=== PATIENT | female | born 1960 | race Caucasian/White ===

== ENCOUNTER → 2020-03-24 10:50 | Outpatient (CLI) | payer BC, SELFPAY ==
[2020-03-24 13:47] LABS: Basophils # 0.1 K/mm3 (0-0.2); Basophils % 0.9 % (0.1-2.0); Eosinophils # 0.2 K/mm3 (0.0-0.4); Hemoglobin 15.3 g/dL (12.2-16.2); Lymphocytes # 1.7 K/mm3 (0.7-4.5); Lymphocytes % 14.3 % (10-50); Mean Corpuscular HGB Conc 34.7 g/dL (31.8-35.4); Mean Corpuscular Hemoglobin 33.7 pg (27.0-31.2); Mean Platelet Volume 7.9 fl (7.4-10.4); Monocytes # 0.6 K/mm3 (0.1-1.0); Monocytes % 5.3 % (1.7-9.3); Neutrophils # 9.2 K/mm3 (1.8-7.8); Neutrophils % 77.6 % (37.0-80.0); Platelet Count 447 K/mm3 (142-424); Red Blood Count 4.54 M/mm3 (4.20-5.40); Red Cell Distribution Width 12.5 % (11.5-17.5); White Blood Count 11.9 K/mm3 (4.8-10.8)
[2020-03-24 14:55] LABS: Chloride 98 mmol/L (98-107); Potassium 4.2 mmoL/L (3.5-5.1); Sodium 134 mmol/L (136-145)
[2020-03-24 14:57] LABS: Alanine Aminotransferase 19 U/L (12-78); Aspartate Amino Transferase 37 U/L (14-36); Blood Urea Nitrogen 6 mg/dl (7-17); Estimated Glomerular Filt Rate 163 ml/min (>60); GFR (African American) 198 ML/MIN (>60)
[2020-03-24 14:58] LABS: Albumin Level 4.5 g/dl (3.5-5.0); Albumin/Globulin Ratio 1.3 (1.1-1.8); Alkaline Phosphatase 97 U/L (38-126); Anion Gap 17.2 mEq/L (5-15); Bilirubin,Total 0.8 mg/dl (0.2-1.3); Carbon Dioxide 23 mmol/L (22.0-30.0); Cholesterol 235 mg/dl (140-200); Globulin 3.6 g/dL (1.3-3.2); Glucose 194 mg/dl (74-100); Total Protein,Serum 8.1 g/dl (6.3-8.2); Triglycerides 78 mg/dl (30-150); VLDL Cholesterol 16 mg/dL (0-40)
[2020-03-24 15:07] LABS: Chol/HDL Ratio 1.6 (1-3.5); HDL Cholesterol 145 mg/dl (40-60)
[2020-03-24 15:09] LABS: Direct LDL Cholesterol 82.35 mg/dL (100-129)
[2020-03-24 15:29] LABS: Thyroid Stimulating Hormone 0.05 uIU/mL (0.465-4.68)
== END ==
PROVIDERS: Visit Provider Internal Medicine Adolescent Medicine
DX: I10 Essential (primary) hypertension (principal); E89.0 Postprocedural hypothyroidism
CPT/HCPCS: 36415; 80053; 80061; 84443; 85025

== ENCOUNTER → 2021-05-15 10:16 | Outpatient (CLI) | payer BC, SELFPAY ==
[2021-05-15 14:02] LABS: Chloride 96 mmol/L (98-107); Sodium 133 mmol/L (136-145)
[2021-05-15 14:03] LABS: Potassium 4.2 mmoL/L (3.5-5.1)
[2021-05-15 14:05] LABS: Alanine Aminotransferase 14 U/L (12-78); Albumin Level 4.5 g/dl (3.5-5.0); Albumin/Globulin Ratio 1.4 (1.1-1.8); Alkaline Phosphatase 98 U/L (38-126); Anion Gap 16.2 mEq/L (5-15); Aspartate Amino Transferase 29 U/L (14-36); Bilirubin,Total 0.7 mg/dl (0.2-1.3); Blood Urea Nitrogen 3 mg/dl (7-17); Carbon Dioxide 25 mmol/L (22.0-30.0); Cholesterol 243 mg/dl (140-200); Estimated Glomerular Filt Rate 163 ml/min (>60); GFR (African American) 197 ML/MIN (>60); Globulin 3.3 g/dL (1.3-3.2); Total Protein,Serum 7.8 g/dl (6.3-8.2); Triglycerides 62 mg/dl (30-150); VLDL Cholesterol 12 mg/dL (0-40)
[2021-05-15 14:06] LABS: Calcium 9.7 mg/dl (8.4-10.2); Glucose 88 mg/dl (74-100)
[2021-05-15 14:16] LABS: Chol/HDL Ratio 1.7 (1-3.5); HDL Cholesterol 145 mg/dl (40-60)
[2021-05-15 14:17] LABS: Direct LDL Cholesterol 88.76 mg/dL (100-129)
[2021-05-15 14:36] LABS: Thyroid Stimulating Hormone 0.99 uIU/mL (0.465-4.68)
== END ==
PROVIDERS: Visit Provider Nurse Practitioner Family
DX: Z00.00 Encounter for general adult medical examination without abnormal findings (principal); I10 Essential (primary) hypertension; E89.0 Postprocedural hypothyroidism
CPT/HCPCS: 36415; 80053; 80061; 84443

== ENCOUNTER → 2021-08-25 12:01 | Outpatient (CLI) | payer BC, SELFPAY | PROVIDERS: PCP Internal Medicine Adolescent Medicine; Visit Provider Internal Medicine Pulmonary Disease | DX: Z01.812 Encounter for preprocedural laboratory examination (principal); Z11.52 Encounter for screening for COVID-19 | CPT/HCPCS: C9803; U0003; U0005 ==

== ENCOUNTER 2021-08-28 08:54 | Day surgery (SDC) | payer BC, SELFPAY ==
[2021-08-24 10:58] VITALS: BMI 19.3
[2021-08-28] VITALS (11 sets, daily range): BP systolic 73–163; BP diastolic 43–92; PULSE 111–128; RESP 18–24; TEMP 36.2–37.3; O2SAT 92–96
--- NOTE | 2021-08-28 09:25 | P.PN_ITS ---
[facility] Anesthesia Checklist - Patient Identification Patient Identification: Arm Band - Structural Data Admitted From: Home Planned Operative Procedure/s: Bronchoscopy with biopsy Consent for Planned Operative Procedure(s) Verified: Yes - NPO Status Verified Time NPO: 00:00 - Additional verifications Anesthesia Reactions: No Hx Blood Transfusions: No Blood Transfusion Reaction: No - Airway Assessment C-Spine Mobility Assessed: Yes TMJ Mobility Assessed: Yes - Neurological Assessment Level of Consciousness: Awake Hx Seizures: No Numbness or tingling in extremities: No - Anesthesia Plan Anesthesia Risk discussed: Yes Anesthesia Plan: Verified ASA Class: III Anesthesia Type: General [facility] History I have reviewed the patient's past medical history: Yes Medical History: Reports:: Chronic Obstructive Pulmonary Disease (COPD), Home Oxygen (2L) Denies:: Cancer, Diabetes Mellitus Type 1, Diabetes Mellitus Type 2, Internal Pacemaker, MRSA, Seizures *Have you ever received a pneumonia vaccine?: Yes *Have you received a flu vaccine this season?: Yes Other Medical History: Reports: Hypothyroidism. Denies: Blood Transfusion Reaction Anesthesia experience/problems:: None Other Surgeries: Yes: Thyroidectomy. No: Pacemaker Amputation: No Fractures: No - *Social History Last grade of school completed: High school graduate Smoking Status: Former smoker Alcohol Intake: current Alcohol Intake Frequency:: a few times a week Substance Use Type: denies use *Occupational Status:: retired *Travel in the last 8 weeks: None Family Hx:: Unable to obtain
--- NOTE | 2021-08-28 11:45 | HMH.ANESI ---
[facility] Anesthesia Record Part I Intake, IV Amount: 600 Estimated blood loss (mL): 5 Urine output (mL): 0 Blood Pressure: 157/51 SaO2: 96 Pulse Rate: 128 Respiratory Rate: 20 Temperature: 97.6 F Patient is:: Awake Stable to PACU at:: 11:34
--- NOTE | 2021-08-28 11:50 | XR_ITS ---
FINAL REPORT CLINICAL HISTORY: post op-diff breathing. broch with biopsy COMPARISON: July 01, 2021 FINDINGS: The heart is mildly enlarged. The mediastinum is within normal limits. There is patchy airspace opacity in the right upper lobe and right lower lobe probably due to pneumonia. Findings are more evident than on the prior exam. There is scarring in the medial left upper lobe. Lucencies in the bilateral lung apices are probably due to emphysema. No definite pneumothorax is seen. IMPRESSION: Patchy right upper lobe and right lower lobe airspace opacity probably due to pneumonia. No definite pneumothorax. Reviewed, Interpreted and Dictated by Willem Wan MD Transcribed by Declan Escobar Authenticated by Willem Wan MD on 08/28/2021 01:15:09 PM [facility]
--- NOTE | 2021-08-28 11:55 | HMH.BRONCH ---
- Procedure: Date: 08/28/21 Patient Date of :: 1960 Procedure Performed:: Bronchoscopy with endobronchial ultrasound, fine-needle aspiration, airway examination and Endobronchial biopsy: Indications:: Mediastinal and hilar lymphadenopathy, lung nodules Performing Provider:: Neeru Casas MD Referring Provider:: Dr. Jones Sedation:: General anesthesia Procedure:: Bronchoscopy with endobronchial ultrasound, fine-needle aspiration, airway examination and transbronchial biopsy A clean EBUS bronchoscopy was advanced through the ET tube and lymph node stations were examined. Patient noted to lymphadenopathy at stations 4R, 7 and 10 R. Fine-needle aspiration was performed with 5 passes each at station 4R, 7 and 10 R. Pathology at bedside,4R reported to have atypical cells, 7 and 10R are positive for malignant cells, no comments were made on the type of malignancy. EBUS bronchoscopy was retracted and a clean diagnostic bronchoscopy was advanced and airways were examined up to subsegmental bronchi. Ulcerating endobronchial lesion was noted at the takeoff of the right upper lobe bronchus which appeared to be eroding into the airway. No clear base noted for this endobronchial mass. Rest of the airways appeared grossly normal. Bronchoalveolar lavage was performed in the right upper lobe, a total of 60 cc normal saline was instilled with return of 40 cc blood tinged fluidback that was sent for BAL cell count and differential, bacterial fungal and AFB stain and culture. Endobronchial biopsies were performed at the noted right upper lobe endobronchial lesion, total of 4 biopsies were performed and were sent in formalin for cytopathological examination. Patient tolerated the procedure well. We will refer the patient to oncology and will schedule a PET scan. We will follow the patient in pulmonary clinic in 7 days to discuss the results. Please schedule a pulmonary clinic appointment. Findings:: Please see the procedure note Recommendations:: Please see the procedure note Complications:: None Estimated blood obtained (mL): 10
[2021-08-29 07:15] VITALS: BP 150/92; PULSE 116; TEMP 36.2
--- NOTE | 2021-08-29 07:15 | P.PN_ITS ---
[facility] Anesthesia Record Part II Discharge Time: 12:04 Destination: Surgical Day Care (OP Surgery) PACU nurse assessment reviewed?: Yes Patient Condition:: Good Anesthesia Complications:: None Swallowing reflex intact?: Yes Cyanosis?: No Blood Pressure: 150/92 Pulse Rate: 116 Temperature: 97.2 F Mental Status: Alert & Oriented Pain level:: 0 Nausea and/or vomitting:: None Intake, IV Amount: 0
[2021-09-01 08:59] LABS: Cell Count + Differential, BAL SEE COMMENT.
== END 2021-08-28 13:12 | disposition home or self-care (01) ==
LOC: OR 08:55
PROVIDERS: PCP Internal Medicine Adolescent Medicine; Visit Provider Internal Medicine Pulmonary Disease
PROC: (CPT 31625; principal; 2021-08-28 11:00)
DX: C34.11 Malignant neoplasm of upper lobe, right bronchus or lung (principal); C77.1 Secondary and unspecified malignant neoplasm of intrathoracic lymph nodes; Z87.891 Personal history of nicotine dependence; R59.1 Generalized enlarged lymph nodes; R91.1 Solitary pulmonary nodule; R59.0 Localized enlarged lymph nodes; J43.9 Emphysema, unspecified
CPT/HCPCS: 31625; 31629; 31628; 31653; 71045; 87070; 87102; 87116; 87186; 87205; 87206; 89051; J2405